=== PATIENT | male | born 1945 | race Caucasian/White ===

== ENCOUNTER 2018-03-24 06:17 | Day surgery (SDC) | payer MEDICARE ==
[~2018-03-24] VITALS: Ht 185.4 cm; Wt 70.0 kg
[~2018-03-24 06:17] MED LIST: AMIO200T27 PO; ASPI-611 PO; CEPH500C5 PO; DABI150C PO; DEXL60CA3 PO; DILT180C PO; FURO20TA4 PO; METO-384 PO; MSC15T PO; POTA-82 PO; ROSU40TA29 PO
[2018-03-24 06:30] VITALS: BP 127/67
[2018-03-24] MEDS ORDERED: MIDAZolam 5mg/5ml vial ONE (06:51)
[2018-03-24] MEDS ORDERED: LIDOcaine Viscous 15ml cup ONE (06:51)
[2018-03-24] MEDS ORDERED: fentaNYL/PF 50MCG/1 ML 2ML syringe ONE (06:51)
[2018-03-24] MEDS ORDERED: heparin sodium, porcine/PF 100unit/ml 5ML syringe IV ONE (07:20)
[2018-03-24] MEDS ORDERED: ceFAZolin 1GM/D5W- ADD-VANTAGE 50 ML IV ONE (07:20)
[2018-03-24 08:00] VITALS: BP 111/73
[2018-03-24 08:10] VITALS: BP 121/72
== END 2018-03-24 08:47 | disposition home or self-care (01) ==
LOC: GI LAB 06:17
PROVIDERS: ATTEND Internal Medicine Gastroenterology
DX: K94.23 Gastrostomy malfunction (principal); L53.8 Other specified erythematous conditions; F43.10 Post-traumatic stress disorder, unspecified; F41.9 Anxiety disorder, unspecified; K21.9 Gastro-esophageal reflux disease without esophagitis; I10 Essential (primary) hypertension; J44.9 Chronic obstructive pulmonary disease, unspecified; Z86.73 Personal history of transient ischemic attack (TIA), and cerebral infarction without residual deficits; Z95.1 Presence of aortocoronary bypass graft; Z95.0 Presence of cardiac pacemaker; Z87.891 Personal history of nicotine dependence; Z79.82 Long term (current) use of aspirin; Z79.2 Long term (current) use of antibiotics; Z85.858 Personal history of malignant neoplasm of other endocrine glands; Z85.819 Personal history of malignant neoplasm of unspecified site of lip, oral cavity, and pharynx; Z98.890 Other specified postprocedural states; Z79.899 Other long term (current) drug therapy
CPT/HCPCS: 43760; B4088; J1642; J3010; J7030; A4620; J0690; J2250

== ENCOUNTER 2018-09-20 09:42 | Day surgery (SDC) | payer MEDICARE, OTHER ==
[~2018-09-20] VITALS: Ht 182.9 cm; Wt 71.4 kg
[~2018-09-20 09:42] MED LIST changes: -AMIO200T27 PO; -DABI150C PO; -DILT180C PO; -FURO20TA4 PO; -METO-384 PO; -MSC15T PO; -POTA-82 PO; +ROSU40TA21 PO; -ROSU40TA29 PO
[2018-09-20 10:10] VITALS: BP 118/67
== END 2018-09-20 11:25 | disposition home or self-care (01) ==
LOC: GI LAB 09:42
PROVIDERS: ATTEND Internal Medicine Gastroenterology
DX: Z43.1 Encounter for attention to gastrostomy (principal); Z53.9 Procedure and treatment not carried out, unspecified reason